=== PATIENT | female | born 1990 | race Caucasian/White ===

== ENCOUNTER 2019-12-09 11:19 | Observation (INO) ==
[2019-12-09] MEDS ORDERED: DEXTROSE 5%-LACTATED RINGERS 1,000 ML IV PRN (12:38)
[2019-12-09] MEDS ORDERED: TERBUTALINE SULFATE 1 MG/ML VIAL SC ONE (12:38)
[2019-12-09] MEDS ORDERED: BETAMETHASONE ACETATE,SOD PHOS 6 MG/ML VIAL IM ONE (12:38)
[2019-12-09] MEDS ORDERED: RINGER'S SOLUTION,LACTATED 1,000 ML IV ONE (12:47)
[2019-12-09 12:58] LABS: Hematocrit 37.7 % (37.0-47.0); Hemoglobin 12.6 gm/dL (12.5-16.0); Mean Corpuscular Hemoglobin 30.1 pg (27-31); Mean Corpuscular Hgb Conc 33.4 g/dl (32-36); Neutrophil # 7.5 K/mm3 (1.3-6.0); Neutrophil % 71.9 % (42-75.0); Platelet Count 183 K/mm3 (150-450); Red Blood Count 4.19 M/mm3 (4.2-5.4); Red Cell Distribution Width 13.2 % (11.5-14.0); White Blood Count 10.5 K/mm3 (4.0-10.5)
[2019-12-09] MEDS ORDERED: PENICILLIN POTASSIUM IV ONE ×4 (13:15→14:00)
[2019-12-09] MEDS ORDERED: DEXTROSE IV ONE ×4 (13:15→14:00)
[2019-12-09] MEDS ORDERED: WATER IV ONE ×4 (13:15→14:00)
--- NOTE | 2019-12-09 13:26 | HP ---
Chief Complaint - Chief Complaint Date of Service: 12/09/19 Time of Service: 12:53 Chief Complaint: contractions History of Present Illness: 29 yo at 34 wks presents to L&D for threatened labor. Patient presented for routine office visit today complaining of vaginal pressure x 2 weeks and uterine tightening once placed on NST. NST revealed contractions q2-3 min. She was sent to L&D for further evaluation/tx. During the next hour her cervix became softer and changed from cl/75/-2 to FT/75/-1. She feels the contractions, but rates them as 0-1/10. This complicated by anemia, history of recurrent SAB, and history of IUGR with last . She also has history of HSV and states she had a vaginal outbreak last week and currently has a small outbreak on her buttocks far from the perineum. She did not take her Valtrex for the outbreak and has not started prophylaxis yet. Rh positive Rubella Nonimmune GBS pending. Medical History (Last Reviewed 12/09/19 @ 13:05 by Jamey Hathaway DO) HSV antigen DIF positive (Chronic) History of prior with IUGR (Chronic) Heart murmur Onset Date: Unknown childhood Herpes genitalis Onset Date: Unknown , spontaneous Onset Date: ~09/14/182009, 2014- retained POC passed after po antibiotics, 09/14/18 IUGR (intrauterine growth restriction) Onset Date: ~2016 Surgical History: Surgical History (Last Reviewed 12/09/19 @ 13:05 by Jamey Hathaway DO) [place] teeth extracted Onset Date: Unknown Family History: Family History (Last Reviewed 12/09/19 @ 13:05 by Jamey Hathaway DO) Mother Cancer cervical Father Alive and well Grandfather Cancer Prostate/bladder - paternal Grandmother Cancer cervical cancer - maternal Social History: (Last Reviewed 12/09/19 @ 13:05 by Jamey Hathaway DO) Social History: Marital status: current occupational status: employed current occupation: housekeeping Highest education level completed: high school graduate Service: No Tobacco: Smoking Status: Former smoker Alcohol: alcohol intake: current alcohol intake frequency: holiday/special occasion Substance Use: substance use type: does not use Dietary Habits: caffeine: Yes caffeine comment: 2/day Exercise: Physical activity type: none Review Of Systems (GEN) - Review of Systems Generalized/Overall Review: Present: No Symptoms Reported EENTM: Present: No Symptoms Reported Respiratory: Present: No Symptoms Reported Cardiac: Present: No Symptoms Reported Abdominal: Present: Abdominal Pain - contractions Genitourinary: Present: Other - vaginal pressure Musculoskeletal: Present: No Symptoms Reported Neurological: Present: No Symptoms Reported Skin: Present: Other - HSV outbreak on buttocks x 2 days - no tx Endocrine: Present: No Symptoms Reported Immunizations: IMMUNIZATION HX Immunizations Up to Date No History of Influenza Vaccine No Hx Pneumococcal Vaccination No Allergies/Adverse Reactions: Allergies Allergy/AdvReac Type Severity Reaction Status Date / Time sulfamethoxazole Allergy Severe hives Verified 11/18/19 08:55 [From Bactrim] trimethoprim [From Bactrim] Allergy Severe hives Verified 11/18/19 08:55 cephalexin Allergy RASH Verified 11/18/19 08:55 latex Allergy rash Verified 11/18/19 08:55 Home Medications: HOME MEDICATIONS multivitamin 1 tab PO DAILY 09/12/18 [Last Taken Unknown] aspirin 81 mg tablet,delayed release 81 mg PO DAILY 07/29/19 [Last Taken Unknown] ferrous sulfate 325 mg (65 mg iron) tablet 325 mg PO DAILY #30 tab 10/28/19 [Last Taken Unknown] Exam - Exam Vital Signs: Vital Signs - Last Taken Temp 36.7 C 12/09/19 12:09 Pulse 84 12/09/19 12:09 Resp 18 12/09/19 12:09 BP 117/74 12/09/19 12:09 Pulse Ox 100 12/09/19 12:09 Constitutional: Present: Alert, Oriented x3, Cooperative, Mild distress ENT Exam: Present: hearing grossly normal Neck: Present: non-tender, trachea midline. Absent: thyromegaly Breasts: Present: Exam deferred Respiratory: Present: lungs clear, no respiratory distress Cardiovascular/Chest: Present: normal peripheral pulses, regular rate, rhythm, no edema Abdomen: Present: soft, nontender, no rebound tenderness, other - Gravid /Rectal: Present: Other - FT/75/-1, soft, mid position Extremity: Present: no pedal edema, no calf tenderness Skin Exam: Present: normal color, warm/dry, no cyanosis, skin rash - single vesicle (1-2mm) with surrounding erythema (1cm) on right buttock near coccyx. Lymphatic: Present: no adenopathy Neurologic: Present: alert, normal mood/affect, oriented x 3 Appearance: Present: appropriate appearance Eye contact: Present: cooperative, good eye contact Thoughts: Present: normal thought pattern, normal mood /affect Assessment/Plan - Assessment/Plan (1) labor in third trimester Assessment: Admit for observation, IV fluid bolus, terbutaline SC x 1, betamethasone 12mg IM x 1. Since patient has allergy to cephalexin, will do test dose of PCN. If not allergic, will start on IV PCN per GBS protocol. Problem: Acute Qualifiers: labor delivery status: without delivery Qualified Code(s): O60.03 - labor without delivery, third trimester (2) HSV infection Assessment: Since patient had a labial outbreak 1 week ago, will keep NPO and start on D5LR IV hydration in case we need to deliver by C/S. Start Valtrex 500mg BID. Problem: Acute (3) History of recurrent , currently Problem: Chronic (4) History of prior with IUGR Problem: Chronic
[2019-12-09] MEDS: valACYclovir HCL 500 MG TABLET PO SCH ×2 (13:29→21:37)
[2019-12-09] MEDS: DEXTROSE 5%-LACTATED RINGERS 1,000 ML IV PRN (14:08)
[2019-12-09] MEDS: TERBUTALINE SULFATE 1 MG/ML VIAL SC PRN ×2 (15:22→19:41)
[2019-12-09] MEDS ORDERED: PENICILLIN G POTASSIUM 2.5 MILLIONUNT in DEXTROSE 5 % IN WATER 100 ML IV SCH ×2 (16:40)
[2019-12-09 17:56] LABS: Cocaine Ur Negative (NEGATIVE); Urine Barbiturate Negative (NEGATIVE); Urine Benzodiazepines Negative (NEGATIVE); Urine Opiates Negative (NEGATIVE); Urine PCP Negative (NEGATIVE); Urine THC Negative (NEGATIVE)
--- NOTE | 2019-12-09 20:41 | PN ---
Progess Note - Interim Date: 12/09/19 Time: 20:36 Narrative: 12/09/19 20:36 Patient been having uncomfortable contractions again approximately an hour ago. Vital signs stable. FHT: 130 baseline, reassuring contractions q 1-2 min, resolved after 1 dose of terbutaline subcutaneously. Cervix: Fingertip/75/-1 Impression: Intrauterine at 34 weeks. labor. Recent HSV infection. GBS status pending. Plan: We will continue close observation, continue with IV penicillin for GBS prophylaxis, repeat betamethasone dose 24 hours after first dose, continue Valtrex 500 mg twice daily, give subcutaneous terbutaline as needed for contractions. If patient makes further cervical change to 2 cm, will transfer to the [facility].
[2019-12-09] MEDS: PENICILLIN G POTASSIUM 2.5 MILLIONUNT in DEXTROSE 5 % IN WATER 100 ML IV SCH ×2 (21:19)
[2019-12-10] MEDS: DEXTROSE 5%-LACTATED RINGERS 1,000 ML IV PRN ×2 (00:03→05:20)
[2019-12-10] MEDS ORDERED: PENICILLIN G POTASSIUM 2.5 MILLIONUNT in DEXTROSE 5 % IN WATER 100 ML IV SCH ×2 (00:41)
[2019-12-10] MEDS: PENICILLIN G POTASSIUM 2.5 MILLIONUNT in DEXTROSE 5 % IN WATER 100 ML IV SCH ×6 (01:01→08:46)
[2019-12-10] MEDS: TERBUTALINE SULFATE 1 MG/ML VIAL SC PRN (01:03)
[2019-12-10] MEDS: valACYclovir HCL 500 MG TABLET PO SCH (09:41)
[2019-12-10] MEDS: ASPIRIN 81 MG TABLET.DR PO SCH ×2 (09:41→12:53)
[2019-12-10] MEDS: FERROUS SULFATE 325 MG TABLET PO SCH ×2 (09:41→12:52)
[2019-12-10] MEDS: PRENATAL VITS96/IRON FUM/FOLIC 1 TAB TABLET PO SCH ×2 (09:41→12:52)
[2019-12-10 12:16] VITALS: BP 99/52
[2019-12-10] MEDS ORDERED: BETAMETHASONE ACETATE,SOD PHOS 6 MG/ML VIAL IM ONE (13:00)
--- NOTE | 2019-12-10 13:07 | PN ---
Subjective - Date and Time Seen Date: 12/10/19 Time: 08:45 Subjective Narrative: Patient had increased frequency of contractions upon awakening this morning which resolved after emptying her bladder and resting for a small period of time. Denies any increased pain, vaginal discharge, vaginal bleeding, or pressure. Objective - Review of Systems Generalized/Overall Review: Reports: No Symptoms Reported EENTM: Reports: No Symptoms Reported Respiratory: Reports: No Symptoms Reported Cardiac: Reports: No Symptoms Reported Abdominal: Reports: No Symptoms Reported Genitourinary Symptoms: Reports: No Symptoms Reported Musculoskeletal Complaints: Reports: No Symptoms Reported Neurological: Reports: No Symptoms Reported Skin: Reports: No Symptoms Reported Endocrine: Reports: No Symptoms Reported - Vitals Vitals: Last Vital Signs Temp 37.1 C 12/10/19 12:00 Pulse 86 12/10/19 12:00 Resp 20 12/10/19 12:00 BP 99/52 12/10/19 12:00 Pulse Ox 99 12/10/19 12:00 - Exam Constitutional: Present: Alert, Oriented x3, Cooperative, No distress ENT Exam: Present: hearing grossly normal Breasts: Present: Exam deferred Respiratory: Present: no respiratory distress Cardiovascular/Chest: Present: regular rate, rhythm, no edema Abdomen: Present: soft, nontender, no rebound tenderness, other - Gravid /Rectal: Present: Exam deferred Extremity: Present: no pedal edema, no calf tenderness Skin Exam: Present: normal color, warm/dry, no cyanosis Neurologic: Present: alert, normal mood/affect, oriented x 3 Appearance: Present: appropriate appearance, appropriate insight Eye contact: Present: cooperative, good eye contact Thoughts: Present: normal thought pattern, normal mood /affect Assessment/Plan Plan Narrative: Patient appears to be fairly stable at present with episodic runs of contractions and discomfort. Since she is is currently not having symptoms I will refrain from checking her cervix to avoid stirring up more contractions. Will slowly increase activity, allow patient to eat, and discharge IV antibiotics for now. After her second dose of steroids this afternoon, if she remains stable will discharge to home with labor precautions. - Problems/Diagnosis (1) labor in third trimester Problem: Acute Qualifiers: labor delivery status: without delivery Qualified Code(s): O60.03 - labor without delivery, third trimester (2) HSV infection Problem: Acute (3) History of recurrent , currently Problem: Chronic (4) History of prior with IUGR Problem: Chronic
--- NOTE | 2019-12-10 18:03 | PN ---
Progess Note - Interim Date: 12/10/19 Time: 17:56 Narrative: 12/10/19 17:56 Patient has not had any painful contractions all day today, though monitor shows contractions q2-5min. Cervix has not changed since last pm, remaining at 1/50/- 2. NST reactive. Will discharge home today with PTL precautions. See OB discharge summary.
--- NOTE | 2019-12-10 18:10 | DS ---
OB Discharge Summary (1) labor in third trimester Status: Acute Qualifiers: labor delivery status: without delivery Qualified Code(s): O60.03 - labor without delivery, third trimester (2) HSV infection Status: Acute (3) History of recurrent , currently Status: Chronic (4) History of prior with IUGR Status: Chronic :: 6 Para:: 2 Gestational weeks:: 34 Gestational days:: 1 Intrapartum Procedures: Undelivered, Other - IV antibiotics, tocolytics, betamethasone, and toco monitoring. Discharge Diagnosis: Premature Labor - Discharge Information Date of Discharge: 12/10/19 Hospital Course: 29 yo at 34w0d admitted clinic status for threatened labor. She made cervical change and was admitted for 23 hour observation. During this time, she received IV fluids, IV PCN for GBS prophylaxis and 2 doses of betamethasone 12mg. She was also started on Valtrex 500mg BID for perineal HSV outbreak 1 wk ago and current HSV infection on buttocks. Because of further cervical change and continued contractions she was changed to full admit for further evaluation. Cervical exam at time of discharge (1809) was 1/50/-1 (stable since 49). Contractions were q2-5 min of mild intensity. She was given PTL precautions which includes pelvic rest, no nipple stimulation and no heavy lifting/strenuous activity. Discharge Location: Home Disposition: Home self-care Condition: Good Activity on Discharge:: Activity as tolerated, Pelvic Rest, No lifting Discharge Diet: General/regular food Prescriptions (Any new or edited meds): valACYclovir HCL [Valtrex] 500 mg PO BID #60 tab Transmission Status: Pending to [id number] Complete Home Medications List: Complete Home Medication List: multivitamin 1 tab PO DAILY 09/12/18 aspirin 81 mg tablet,delayed release 81 mg PO DAILY 07/29/19 ferrous sulfate 325 mg (65 mg iron) tablet 325 mg PO DAILY #30 tab 10/28/19 valACYclovir HCL [Valtrex] 500 mg PO BID #60 tab 12/10/19 - Plan Discharge to:: Home Follow up in office in:: 1 week Follow Up Appointment:: 12/16/19.
[2019-12-10] MEDS ORDERED: ASPIRIN 81 MG TABLET.DR PO SCH (21:00)
== END 2019-12-10 18:10 | disposition home or self-care (01) ==
LOC: OBCLINIC 11:19 → OB 11:19
PROVIDERS: ADMIT Obstetrics & Gynecology; ATTEND Obstetrics & Gynecology
DX: O98.513 Other viral diseases complicating pregnancy, third trimester; Z3A.34 34 weeks gestation of pregnancy; B00.9 Herpesviral infection, unspecified; O60.03 Preterm labor without delivery, third trimester

== ENCOUNTER 2020-01-05 01:13 | Inpatient (IN) ==
[2020-01-05] MEDS ORDERED: LIDOCAINE HCL 50 ML VIAL PERI PRN (01:50)
[2020-01-05] MEDS ORDERED: ONDANSETRON 4 MG TAB.RAPDIS PO PRN (01:50)
[2020-01-05] MEDS ORDERED: PENICILLIN G POTASSIUM 5 MILLIONUNT in DEXTROSE 5 % IN WATER 100 ML IV ONE ×2 (01:50)
[2020-01-05] MEDS ORDERED: DEXTROSE 5%-LACTATED RINGERS 1,000 ML IV PRN (01:50)
[2020-01-05] MEDS ORDERED: OXYTOCIN/0.9 % SODIUM CHLORIDE 30 UNITS/500 ML BAG IV ONE ×2 (01:50→13:21)
[2020-01-05] MEDS: RINGER'S SOLUTION,LACTATED 1,000 ML IV ONE ×4 (02:33→10:19)
[2020-01-05] MEDS: PENICILLIN G POTASSIUM 2.5 MILLIONUNT in DEXTROSE 5 % IN WATER 100 ML IV SCH ×4 (06:13→11:00)
--- NOTE | 2020-01-05 08:20 | HP ---
Chief Complaint - Chief Complaint Date of Service: 01/05/20 Time of Service: 07:45 Chief Complaint: LOF History of Present Illness: 29 yo at 37w6d admitted to L&D in early labor with SROM at around 0020. This complicated by anemia, HSV (last outbreak >4wks ago on buttocks, on prophylaxis), PTL, h/o IUGR, h/o recurrent SAB, and h/o PTL/PTD (36wks). Rh positive Rubella nonimmune GBS positive Medical History (Last Reviewed 01/05/20 @ 09:25 by Jamey Hathaway DO) HSV antigen DIF positive (Chronic) History of prior with IUGR (Chronic) NST reactive Normal CARRILLO Heart murmur Onset Date: Unknown childhood Herpes genitalis Onset Date: Unknown , spontaneous Onset Date: ~09/14/182009, 2014- retained POC passed after po antibiotics, 09/14/18 IUGR (intrauterine growth restriction) Onset Date: ~2016 Surgical History: Surgical History (Last Reviewed 01/05/20 @ 09:26 by Jamey Hathaway DO) [place] teeth extracted Onset Date: Unknown Family History: Family History (Last Reviewed 01/05/20 @ 09:26 by Jamey Hathaway DO) Mother Cancer cervical Father Alive and well Grandfather Cancer Prostate/bladder - paternal Grandmother Cancer cervical cancer - maternal Social History: (Last Reviewed 01/05/20 @ 09:26 by Jamey Hathaway DO) Social History: Marital status: current occupational status: employed current occupation: housekeeping Highest education level completed: high school graduate Service: No Tobacco: Smoking Status: Former smoker Alcohol: alcohol intake: current alcohol intake frequency: holiday/special occasion Substance Use: substance use type: does not use Dietary Habits: caffeine: Yes caffeine comment: 2/day Exercise: Physical activity type: none Review Of Systems (GEN) - Review of Systems Generalized/Overall Review: Present: No Symptoms Reported EENTM: Present: No Symptoms Reported Respiratory: Present: No Symptoms Reported Cardiac: Present: No Symptoms Reported Abdominal: Present: Other - contractions Genitourinary: Present: Other - LOF - clear around 0020 Musculoskeletal: Present: No Symptoms Reported Neurological: Present: No Symptoms Reported Skin: Present: No Symptoms Reported Endocrine: Present: No Symptoms Reported Immunizations: IMMUNIZATION HX Immunizations Up to Date No History of Influenza Vaccine No Hx Pneumococcal Vaccination No Allergies/Adverse Reactions: Allergies Allergy/AdvReac Type Severity Reaction Status Date / Time sulfamethoxazole Allergy Severe hives Verified 01/05/20 01:46 [From Bactrim] trimethoprim [From Bactrim] Allergy Severe hives Verified 01/05/20 01:46 valacyclovir [From Valtrex] Allergy Intermediate Other Verified 01/05/20 01:46 cephalexin Allergy RASH Verified 01/05/20 01:46 latex Allergy rash Verified 01/05/20 01:46 Home Medications: HOME MEDICATIONS aspirin 81 mg tablet,delayed release 81 mg PO DAILY 07/29/19 [Last Taken Unknown] ferrous sulfate 325 mg (65 mg iron) tablet 325 mg PO DAILY #30 tab 10/28/19 [ Last Taken Unknown] Acyclovir [Zovirax] 400 mg PO TID 12/15/19 [Last Taken Unknown] Vits96/Iron Fum/Folic [ S] 1 tab PO DAILY 01/03/20 [Last Taken Unknown] Exam - Exam Vital Signs: Vital Signs - Last Taken Temp 37.0 C 01/05/20 01:47 Pulse 70 01/05/20 01:47 Resp 16 01/05/20 01:47 BP 139/66 01/05/20 01:47 Pulse Ox 100 01/05/20 01:47 Constitutional: Present: Alert, Oriented x3, Cooperative, No distress ENT Exam: Present: hearing grossly normal Neck: Present: non-tender, supple, trachea midline. Absent: thyromegaly Breasts: Present: Exam deferred Respiratory: Present: lungs clear, no respiratory distress Cardiovascular/Chest: Present: regular rate, rhythm, no edema Abdomen: Present: soft, nontender, no rebound tenderness, other - gravid /Rectal: Present: Other - Cervix 1/80/-4, gross ROM - clear, nitraswab positive, pooling. No HSV lesions seen. Extremity: Present: normal range of motion, no pedal edema, no calf tenderness Skin Exam: Present: normal color, warm/dry, no cyanosis Lymphatic: Present: no adenopathy Neurologic: Present: alert, normal mood/affect, oriented x 3 Appearance: Present: appropriate appearance, appropriate insight Eye contact: Present: cooperative, good eye contact Thoughts: Present: normal thought pattern, normal mood /affect Assessment/Plan - Assessment/Plan (1) SROM (spontaneous rupture of membranes) Assessment: Admit to L&D for routine management of labor. Epidural and pitocin PRN. IV PCN per GBS protocol. Problem: Acute (2) History of prior with IUGR Problem: Chronic (3) GBS (group B Streptococcus carrier), +RV culture, currently Problem: Acute (4) Anemia Problem: Acute Qualifiers: Anemia type: iron deficiency Iron deficiency anemia type: inadequate dietary iron intake Qualified Code(s): D50.8 - Other iron deficiency anemias (5) labor in third trimester Problem: Resolved Qualifiers: labor delivery status: without delivery Qualified Code(s): O60.03 - labor without delivery, third trimester (6) History of herpes genitalis Problem: Chronic (7) History of recurrent , currently Problem: Chronic (8) Rubella non-immune status, antepartum Problem: Chronic
[2020-01-05] MEDS ORDERED: ONDANSETRON HCL/PF 2 MG/ML VIAL IV PRN (09:53)
[2020-01-05] MEDS ORDERED: NALOXONE HCL 1 MG/1 ML SYRG IV PRN (09:53)
[2020-01-05] MEDS ORDERED: BUPIVACAINE HCL/0.9 % NACL/PF 250 ML EP PRN (09:53)
[2020-01-05] MEDS ORDERED: BUPIVACAINE HCL/PF 30 ML VIAL EP SCH (10:00)
--- NOTE | 2020-01-05 10:18 | PN ---
Progess Note - Interim Date: 01/05/20 Time: 10:14 Narrative: 01/05/20 10:14 Patient becoming very uncomfortable with contractions; desires epidural. Vital signs stable. FHT: 140 baseline, reassuring, mild/moderate variables with some contractions. Contractions q 1-2 min Cervix: Complete/0 at 0900 Impression: Intrauterine at 37-6/7 weeks, SROM, labor, GBS positive- status post 2 doses of penicillin. Baby is OP presentation-did not respond to position changes and attempt at manual rotation due to patient's discomfort. Plan: We will get epidural and try to rotate baby to OA position.
--- NOTE | 2020-01-05 10:34 | ANES ---
Anesthesia Pre Procedure Eval Vitals/Labs: Last Vital Signs Temp 37.0 C 01/05/20 01:47 Pulse 70 01/05/20 01:47 Resp 16 01/05/20 01:47 BP 139/66 01/05/20 01:47 Pulse Ox 100 01/05/20 01:47 HOME MEDICATIONS aspirin 81 mg tablet,delayed release 81 mg PO DAILY 07/29/19 [Last Taken Unknown] ferrous sulfate 325 mg (65 mg iron) tablet 325 mg PO DAILY #30 tab 10/28/19 [Last Taken Unknown] Acyclovir [Zovirax] 400 mg PO TID 12/15/19 [Last Taken Unknown] Vits96/Iron Fum/Folic [ S] 1 tab PO DAILY 01/03/20 [Last Taken Unknown] Allergies/Adverse Reactions: Allergies Allergy/AdvReac Type Severity Reaction Status Date / Time sulfamethoxazole Allergy Severe hives Verified 01/05/20 01:46 [From Bactrim] trimethoprim [From Bactrim] Allergy Severe hives Verified 01/05/20 01:46 valacyclovir [From Valtrex] Allergy Intermediate Other Verified 01/05/20 01:46 cephalexin Allergy RASH Verified 01/05/20 01:46 latex Allergy rash Verified 01/05/20 01:46 - Planned Procedure Planned Procedure: Labor Epidural Medication List Reviewed:: Yes Allergies Verified: Yes Medical History (Last Reviewed 01/05/20 @ 10:33 by Art Taylor CRNA) HSV antigen DIF positive (Chronic) History of prior with IUGR (Chronic) NST reactive Normal CARRILLO Heart murmur Onset Date: Unknown childhood Herpes genitalis Onset Date: Unknown , spontaneous Onset Date: ~09/14/182009, 2014- retained POC passed after po antibiotics, 09/14/18 IUGR (intrauterine growth restriction) Onset Date: ~2017 Surgical History (Last Reviewed 01/05/20 @ 10:33 by Art Taylor CRNA) [place] teeth extracted Onset Date: Unknown Family History (Last Reviewed 01/05/20 @ 10:33 by Art Taylor CRNA) Mother Cancer cervical Father Alive and well Grandfather Cancer Prostate/bladder - paternal Grandmother Cancer cervical cancer - maternal - Anesthesia Assessment and Plan ASA Class: PS, II Anesthesia Type Plan: Epidural
--- NOTE | 2020-01-05 10:53 | ANES ---
Post Anesthesia Assessment - Vital Signs Vitals: Last Vital Signs Temp 37.0 C 01/05/20 01:47 Pulse 70 01/05/20 01:47 Resp 16 01/05/20 01:47 BP 139/66 01/05/20 01:47 Pulse Ox 100 01/05/20 01:47 Airway Patency: Normal - Mental Status Level Of Consciousness: Awake - N/V Assessment Nausea/Vomiting Presence: None
--- NOTE | 2020-01-05 10:53 | ANES ---
Anesthesia Procedure Note Procedure Note: ANESTHESIA PROCEDURE NOTE Date of Procedure: 01/05/2020. Time of procedure: 1040. Performed by: Art Taylor CRNA Applications Chemist: None. Preprocedure diagnosis: Active labor. Post procedure diagnosis: Same. Procedure: Insertion of labor epidural. Indications: The patient is a 29-year-old female in active labor requesting labor epidural for pain management. Findings: See below. Details of the procedure: The patient was placed in a sitting position. DuraPrep as well as Betadine swabs X3 was applied to the patient's back. Patient was then draped in a sterile fashion. Lidocaine 1% was infiltrated to the skin and subcutaneous tissues at the level of the L3-4 interspace. The epidural space was identified using a 18-gauge Tuohy needle with [id number] technique. Epidural catheter was inserted to a depth of 10 centimeters at skin. Negative test dose was elicited using 3 mL of 1.5% preservative-free lidocaine plus epinephrine 1 200,000. The epidural catheter was then taped and secured in place. A loading dose of 8 mL of 0.25% preservative-free bupivacaine was administered to the epidural catheter after negative aspiration for blood and CSF. EBL: Minimal. Fluids: N/A. Specimen: N/A. Post procedure condition: The patient tolerated the procedure well. No complications were noted. Thank you for this consultation. Art Taylor CRNA
--- NOTE | 2020-01-05 12:13 | PN ---
Progess Note - Interim Date: 01/05/20 Time: 12:11 Narrative: 01/05/20 12:11 Patient comfortable with epidural Vital signs stable. FHT: 135 baseline, reassuring contractions q 1-2 min Cervix: Complete and pushing now for little over 2 hours Impression: Intrauterine at 37-6/7 weeks, SROM x12 hours, GBS positive-status post 3 doses of IV penicillin. Plan: Anticipate normal spontaneous vaginal delivery soon
[2020-01-05] MEDS ORDERED: SENNOSIDES 8.6 MG TABLET PO PRN (13:21)
[2020-01-05] MEDS ORDERED: BENZOCAINE/MENTHOL 81 SPRAY CAN TP PRN (13:21)
[2020-01-05] MEDS ORDERED: oxyCODONE HCL/ACETAMINOPHEN 1 TAB TABLET PO PRN (13:21)
[2020-01-05] MEDS ORDERED: HYDROCORTISONE 30 APPL TUBE TP PRN (13:21)
[2020-01-05] MEDS ORDERED: BISACODYL 10 MG SUPP.RECT RC PRN (13:21)
[2020-01-05] MEDS ORDERED: IBUPROFEN 800 MG TABLET PO PRN (13:21)
[2020-01-05] MEDS ORDERED: GLYCERIN/WITCH HAZEL LEAF 40 APPL BOX TP PRN (13:21)
--- NOTE | 2020-01-05 13:23 | OR ---
Operative Report - Dictated Report Narrative: Spontaneous vaginal delivery of vigorously crying viable male at 1305 on 01/05/1964 with Apgars 9 and 9, weighing 2990 g and AZAEL position. Cord clamping delayed approximately 1 minute Placenta delivered complete, intact, with three vessel cord Estimated blood loss: Less than 50 ml Anesthesia: Epidural Lacerations: None History for MU History for Definition: * The number of deliveries resulting in a live the patient experienced prior to current hospitalization * The previous delivery of live twins or any live multiple gestation is considered one live event. *If primagravida or nulliparous is documented select zero for the number of previous live births. Live Events: Live Events: 2
[2020-01-05] MEDS: DOCUSATE SODIUM 100 MG CAPSULE PO SCH (22:31)
[2020-01-06] MEDS: IBUPROFEN 800 MG TABLET PO PRN ×3 (00:24→21:27)
[2020-01-06] MEDS: PRENATAL VITS96/IRON FUM/FOLIC 1 TAB TABLET PO SCH (09:00)
[2020-01-06] MEDS: DOCUSATE SODIUM 100 MG CAPSULE PO SCH ×2 (09:00→21:27)
[2020-01-06] MEDS: FERROUS SULFATE 325 MG TABLET PO SCH (09:00)
--- NOTE | 2020-01-06 14:05 | PN ---
Subjective - Date and Time Seen Date: 01/06/20 Time: 14:04 Objective - Vitals Vitals: Last Vital Signs Temp 36.6 C 01/06/20 08:06 Pulse 60 01/06/20 08:06 Resp 18 01/06/20 08:06 BP 117/63 01/06/20 08:06 Pulse Ox 98 01/06/20 08:06 Patient denies complaints. Breast-feeding. Lochia wnl abdomen - soft, nontender Uterus -firm, at umbilicus - 1 No calf tenderness Impression: day #1 - s/p spontaneous vaginal delivery. Plan: Continue routine care Assessment/Plan - Problems/Diagnosis (1) SROM (spontaneous rupture of membranes) Problem: Acute (2) History of prior with IUGR Problem: Chronic (3) GBS (group B Streptococcus carrier), +RV culture, currently Problem: Acute (4) Anemia Problem: Acute Qualifiers: Anemia type: iron deficiency Iron deficiency anemia type: inadequate dietary iron intake Qualified Code(s): D50.8 - Other iron deficiency anemias (5) labor in third trimester Problem: Resolved Qualifiers: labor delivery status: without delivery Qualified Code(s): O60.03 - labor without delivery, third trimester (6) History of herpes genitalis Problem: Chronic (7) History of recurrent , currently Problem: Chronic (8) Rubella non-immune status, antepartum Problem: Chronic
--- NOTE | 2020-01-06 14:10 | DS ---
OB Discharge Summary (1) SROM (spontaneous rupture of membranes) Status: Resolved (2) History of prior with IUGR Status: Chronic (3) GBS (group B Streptococcus carrier), +RV culture, currently Status: Resolved (4) Anemia Status: Chronic Qualifiers: Anemia type: iron deficiency Iron deficiency anemia type: inadequate diet sara iron intake Qualified Code(s): D50.8 - Other iron deficiency anemias (5) labor in third trimester Status: Resolved Qualifiers: labor delivery status: without delivery Qualified Code(s): O60.03 - labor without delivery, third trimester (6) History of herpes genitalis Status: Chronic (7) History of recurrent , currently Status: Chronic (8) Rubella non-immune status, antepartum Status: Chronic Delivery Date: 01/05/20 Delivery Time: 13:05 :: 6 Para:: 3 Gestational weeks:: 37 Gestational days:: 6 Intrapartum Procedures: Spontaneous Vaginal Delivery, Delivered, Anesthesia - Epidural /OP Complications: No Complications Discharge Diagnosis: Term -Delivered, Rubella Nonimmune - Discharge Information Date of Discharge: 01/07/20 Hospital Course: 29-year-old 6 para 1132 admitted at 37 weeks 6 days for spontaneous rupture of membranes in labor. Her labor progressed rapidly to complete dilation. It took nearly 4 hours after that to push the baby out. Her course was uncomplicated. Discharge Location: Home Disposition: Home self-care Condition: Good Activity on Discharge:: Activity as tolerated, Pelvic Rest Discharge Diet: General/regular food Additional Patient Instructions (free text): Anushka, your follow up appt is on MondayFebruary 02 at 9:15AM with Dr Hathaway. Luis's follow up appt with Hannah Plata is on His Blood Type is O+. His Weight today is 6 pounds 5 ounces. His Serum Bilirubin is 9.6 at 41 hours of age. His Urology appt with Dr De Anda in [place] is on February 07 at 11:00AM. Their phone number is [phone]. Breastfeed on demand or at least every 2-[address] Luis on his back in his own crib or bassinet for sleep. No pillows, blankets, stuffed animals, or bumper pads in his sleep space. Please call with any questions/concerns. [facility] [phone], [facility] [phone], [facility] [phone]. Prescriptions (Any new or edited meds): RX: Ibuprofen [Motrin] 200 - 800 mg PO Q6H PRN #100 tab PRN Reason: Pain Transmission Status: Received by [facility] #[id number] Complete Home Medications List: Complete Home Medication List: ferrous sulfate 325 mg (65 mg iron) tablet 325 mg PO DAILY #30 tab 10/28/19 RX: Vits96/Iron Fum/Folic [ S] 1 tab PO DAILY 01/03/20 RX: Ibuprofen [Motrin] 200 - 800 mg PO Q6H PRN #100 tab 01/06/20 - Plan Discharge to:: Home Follow up in office in:: 3-4 weeks - Information Weight (Grams): 2,990 Infant Sex: Male Score 1 min: 9 Score 5 min: 9 Infant Complications: None
[2020-01-07 08:50] VITALS: BP 119/65
[2020-01-07] MEDS: DOCUSATE SODIUM 100 MG CAPSULE PO SCH (08:53)
[2020-01-07] MEDS: PRENATAL VITS96/IRON FUM/FOLIC 1 TAB TABLET PO SCH (08:53)
[2020-01-07] MEDS: FERROUS SULFATE 325 MG TABLET PO SCH (08:53)
--- NOTE | 2020-01-07 08:55 | PN ---
Subjective - Date and Time Seen Date: 01/07/20 Time: 08:55 Objective - Vitals Vitals: Last Vital Signs Temp 36.5 C 01/07/20 08:40 Pulse 66 01/07/20 08:40 Resp 18 01/07/20 08:40 BP 119/65 01/07/20 08:40 Pulse Ox 99 01/07/20 08:40 Patient denies complaints. Lochia wnl abdomen - soft, nontender Uterus -firm, at umbilicus - 2 No calf tenderness Impression: day #2 - s/p spontaneous vaginal delivery. Plan: Routine discharge instructions Assessment/Plan - Problems/Diagnosis (1) SROM (spontaneous rupture of membranes) Problem: Resolved (2) History of prior with IUGR Problem: Chronic (3) GBS (group B Streptococcus carrier), +RV culture, currently Problem: Resolved (4) Anemia Problem: Chronic Qualifiers: Anemia type: iron deficiency Iron deficiency anemia type: inadequate dietary iron intake Qualified Code(s): D50.8 - Other iron deficiency anemias (5) labor in third trimester Problem: Resolved Qualifiers: labor delivery status: without delivery Qualified Code(s): O60.03 - labor without delivery, third trimester (6) History of herpes genitalis Problem: Chronic (7) History of recurrent , currently Problem: Chronic (8) Rubella non-immune status, antepartum Problem: Chronic
== END 2020-01-07 12:20 | disposition home or self-care (01) | DRG 806 ==
LOC: OBCLINIC 01:13 → OB 01:42
PROVIDERS: ADMIT Obstetrics & Gynecology; ATTEND Obstetrics & Gynecology